=== PATIENT | male | born 1985 | race African-American/Black ===

== ENCOUNTER 2024-07-06 17:43 | Emergency (ER) | payer MEDICAID ==
[2024-07-06 17:47] VITALS: PULSE 77; RESP 16; O2SAT 100
== END 2024-07-06 18:53 | disposition left against medical advice (07) ==
LOC: ER 17:43
DX: M54.9 Dorsalgia, unspecified (principal); M54.2 Cervicalgia; Z53.21 Procedure and treatment not carried out due to patient leaving prior to being seen by health care provider